=== PATIENT | male | born 2000 | race Caucasian/White ===

== ENCOUNTER 2022-03-30 16:57 | Emergency (ER) | payer OTHER, BC ==
[2022-03-30] MEDS ORDERED: Lorazepam 1 MG TAB ONE (18:21)
== END 2022-03-30 19:14 | disposition home or self-care (01) ==
LOC: CSHERS 16:57
DX: S05.12XA Contusion of eyeball and orbital tissues, left eye, initial encounter (principal); S06.9X9A Unspecified intracranial injury with loss of consciousness of unspecified duration, initial encounter; W01.0XXA Fall on same level from slipping, tripping and stumbling without subsequent striking against object, initial encounter
CPT/HCPCS: 70450; 70486